=== PATIENT | male | born 1995 | race Caucasian/White ===

== ENCOUNTER 2018-08-26 09:55 | Day surgery (SDC) | payer MEDICAID ==
[~2018-08-26] VITALS: Ht 177.8 cm; Wt 74.1 kg
[~2018-08-26 09:55] MED LIST: ESCI10TA PO
[2018-08-26] MEDS ORDERED: SODIUM CHLORIDE 0.9% 1,000 ML IV ONE ×2 (10:34→11:00)
== END 2018-08-26 13:20 | disposition home or self-care (01) ==
LOC: SURGERY 09:55
PROVIDERS: ATTEND Internal Medicine Gastroenterology
DX: K63.5 Polyp of colon (principal); K64.8 Other hemorrhoids; F41.8 Other specified anxiety disorders; Z87.898 Personal history of other specified conditions
CPT/HCPCS: 45385; 88305; C1769; J7030